=== PATIENT | male | born 1960 | race Caucasian/White ===

== ENCOUNTER 2017-11-12 14:10 | Inpatient (IN) | payer OTHER ==
[2017-11-12] MEDS ORDERED: Polyethylene Glycol 3350 Powder 17 GM Packet PO PRN (14:44)
[2017-11-12] MEDS ORDERED: oxyCODONE 5 MG Tab PO PRN (14:44)
[2017-11-12] MEDS ORDERED: Ondansetron 4 MG Tab.DIS PO PRN (14:44)
--- NOTE | 2017-11-12 14:56 | PCM.HP ---
H&P History of Present Illness - General Date of Service: 11/12/17 Admit Problem/Dx: Admission Diagnosis/Problem Admission Diagnosis/Problem Cellulitis of left lower extremity Source of Information: Patient, Family, Provider History Limitations: Reports: No Limitations - History of Present Illness Initial Comments - Free Text/Narative: [place] presents as a direct admission from the clinic. He reports onset of left lower leg redness, warmth and swelling overnight on Wednesday into Wednesday morning, about 2-2.5 days prior to presentation. 2 days ago he had a fever to 102. He was seen in the clinic yesterday and was febrile. There was concern for cellulitis of the left leg and he was started on cephalexin. Despite being on the antibiotics he has had worsening of the redness, pain and swelling. He now reports severe sharp and burning pain in the left lower leg. Pain is worse with any sort of pressure on the leg. Pain does get better with elevation and rest. He has never had pain like this before. He has been febrile throughout the day today despite taking ibuprofen and acetaminophen. His appetite has been down from baseline. He reports feeling foggy and his report some difficulty with memory over the past couple of days. No complaints of shortness of breath, abdominal pain or nausea. No recent antibiotics. He thinks this all may have started after a bug bite to the left posterior leg. Workup in the clinic revealed leukocytosis of 12,000 yesterday but up to 15,000 today. Preliminary culture result from a swab of the wound on the posterior left leg is growing a group A streptococcus. Sensitivities are still pending. - Related Data Allergies/Adverse Reactions: Allergies Allergy/AdvReac Type Severity Reaction Status Date / Time No Known Allergies Allergy Verified 11/12/17 14:38 Home Medications: Home Meds buPROPion HCl [Wellbutrin Xl] 300 mg PO DAILY 11/12/17 [History] Social & Family History - Family History Other Family History: No family hx of recurrent skin infections - Tobacco Use Smoking Status *Q: Never Smoker - Alcohol Use Alcohol Use History: Yes Alcohol Use in Last Twelve Months: Yes Alcohol Use Frequency: Rarely - Recreational Drug Use Recreational Drug Use: No H&P Review of Systems - Review of Systems: Review Of Systems: See Below Free Text/Narrative: A complete 12 point review of systems was obtained. Pertinent positives and negatives are noted in the history of present illness. All other systems were reviewed and were negative except as noted. Exam - Exam Exam: See Below - Exam Quality Assessment: No: Supplemental Oxygen General: Alert, Oriented, Cooperative. No: Mild Distress HEENT: Conjunctiva Clear, Mucosa Moist & [place]. No: Scleral Icterus Neck: Supple, Trachea Midline. No: Lymphadenopathy Lungs: Clear to Auscultation, Normal Respiratory Effort Cardiovascular: Regular Rate, Regular Rhythm. No: Systolic Murmur GI/Abdominal Exam: Normal Bowel Sounds, Soft, Non-Tender, No Distention Back Exam: Normal Inspection, Full Range of Motion Extremities: No Pedal Edema, Increased Warmth (right lower leg including anterior yoo, medial lower leg to the ankle) Peripheral Pulses: 2+: Dorsalis Pedis (L), Dorsalis Pedis (R) Skin: Warm, Dry Neuro Extensive - Mental Status: Alert, Oriented x3, Nl Response to Commands Neuro Extensive - Motor, Sensory, Reflexes: CN II-XII Intact. No: Dysarthria, Abnormal Motor, Tremor Psychiatric: Alert, Normal Affect - Patient Data Lab Results Last 24 hrs: WBC 11/11 was 12,000 WBC 11/12 is 15,000 Result Diagrams: 11/12/17 15:05 Imaging Impressions Last 24 hrs: CT left lower leg - images personally reviewed - there is no evidence for abscess or deep tissue infection. There is a significant amount of swelling superficially. *Q Meaningful Use (ADM) - VTE Risk Assess *Q Each Risk Factor Represents 1 Point: Age 41 - 59 years Total Score 1 Point Risk Factors: 1 Each Risk Factor Represents 2 Points: None Total Score 2 Point Risk Factors: 0 Each Risk Factor Represents 3 Points: None Total Score 3 Point Risk Factors: 0 Each Risk Factor Represents 5 Points: None Total Score 5 Point Risk Factors: 0 Venous Thromboembolism Risk Factor Score *Q: 1 - Problem List (1) Cellulitis of left lower extremity SNOMED Code(s): 709444494 ICD Code: L03.116 - CELLULITIS OF LEFT LOWER LIMB Status: Acute Current Visit: Yes Problem List Initiated/Reviewed/Updated: Yes Orders Last 24hrs: Active Orders 24 hr Category Date Time Status Patient Status [ADT] Routine ADT 11/12/17 14:44 Ordered Intake and Output [RC] QSHIFT Care 11/12/17 14:45 Ordered Notify Provider Vital Signs [RC] ASDIRECTED Care 11/12/17 14:45 Ordered Oxygen Therapy [RC] PRN Care 11/12/17 14:44 Ordered Peripheral IV Care [RC] . DIRECTED Care 11/12/17 14:47 Ordered Up With Assistance [RC] ASDIRECTED Care 11/12/17 14:44 Ordered VTE/DVT Education [RC] Per Unit Routine Care 11/12/17 14:44 Ordered Vital Signs [RC] Q4H Care 11/12/17 14:44 Ordered Regular Diet [DIET] Diet 11/12/17 Dinner Ordered Lower Extremity wo Cont Lt [CT] Routine Exams 11/12/17 14:39 Ordered BASIC METABOLIC PANEL,BMP [CHEM] AM Lab 11/13/17 05:11 Ordered BASIC METABOLIC PANEL,BMP [CHEM] Urgent Lab 11/12/17 14:40 Ordered CBC W/O DIFF,HEMOGRAM [HEME] AM Lab 11/13/17 05:11 Ordered CRP [C-REACTIVE PROTEIN] [CHEM] Urgent Lab 11/12/17 14:40 Ordered CULTURE BLOOD [BC] Urgent Lab 11/12/17 14:40 Ordered CULTURE BLOOD [BC] Urgent Lab 11/12/17 14:40 Ordered LACTIC ACID [CHEM] Urgent Lab 11/12/17 14:40 Ordered Acetaminophen [Tylenol] Med 11/12/17 14:41 Ordered 650 mg PO Q4H PRN Docusate Sodium/Sennosides [Senna Plus] Med 11/12/17 14:44 Ordered 1 tab PO BID PRN Enoxaparin [Lovenox] Med 11/13/17 09:00 Ordered 40 mg SUBCUT DAILY Ibuprofen [Motrin] Med 11/12/17 14:41 Ordered 600 mg PO Q6H PRN Ondansetron [Zofran ODT] Med 11/12/17 14:44 Ordered 4 mg PO Q6H PRN Polyethylene Glycol 3350 [MiraLAX] Med 11/12/17 14:44 Ordered 17 gm PO DAILY PRN Sodium Chloride 0.9% @ 125 MLS/HR (1000ml) Med 11/12/17 14:45 Ordered Sodium Chloride 0.9% [Normal Saline] 1,000 ml IV ASDIRECTED Sodium Chloride 0.9% [Saline Flush] Med 11/12/17 14:44 Ordered 10 ml FLUSH ASDIRECTED PRN Vancomycin 1.5 gm Med 11/13/17 03:00 Ordered Sodium Chloride 0.9% [Normal Saline] 250 ml IV Q12H Vancomycin 2,000 mg Med 11/12/17 14:42 Ordered Dextrose 5% in Water 250 ml IV ONETIME cefTRIAXone [Rocephin] 2 gm Med 11/12/17 14:45 Ordered Sodium Chloride 0.9% [Normal Saline] 50 ml IV Q24H oxyCODONE Med 11/12/17 14:44 Ordered 5 mg PO Q4H PRN Blood Culture x2 Reflex Set [OM.PC] Urgent Oth 11/12/17 14:40 Ordered Peripheral IV Insertion Adult [OM.PC] Routine Oth 11/12/17 14:44 Ordered Resuscitation Status Routine Resus Stat 11/12/17 14:44 Ordered Medication Orders Acetaminophen (Tylenol) 650 mg PO Q4H PRN PRN Reason: Pain/Fever Enoxaparin Sodium (Lovenox) 40 mg SUBCUT DAILY YARA Ceftriaxone Sodium 2 gm/ (Sodium Chloride) 50 mls @ 100 mls/hr IV Q24H YARA Vancomycin HCl 2,000 mg/ (Sodium Chloride) 500 mls @ 250 mls/hr IV ONETIME ONE Stop: 11/12/17 17:59 Vancomycin HCl 1.5 gm/ Sodium (Chloride) 250 mls @ 167 mls/hr IV Q12H YARA Sodium Chloride (Normal Saline) 1,000 mls @ 125 mls/hr IV ASDIRECTED YARA Ibuprofen (Motrin) 600 mg PO Q6H PRN PRN Reason: Pain/Fever Ondansetron HCl (Zofran Odt) 4 mg PO Q6H PRN PRN Reason: Nausea able to take PO Oxycodone HCl (Oxycodone) 5 mg PO Q4H PRN PRN Reason: Pain (moderate 4-6) Polyethylene Glycol (Miralax) 17 gm PO DAILY PRN PRN Reason: Constipation Senna/Docusate Sodium (Senna Plus) 1 tab PO BID PRN PRN Reason: Constipation Sodium Chloride (Saline Flush) 10 ml FLUSH ASDIRECTED PRN PRN Reason: Keep Vein Open Assessment/Plan Comment:: ASSESSMENT AND PLAN - Cellulitis of the left lower leg with sepsis - progression over the past 24 hours despite oral antibiotic use at home. CT scan of the leg did not show evidence for abscess or deep structure infection. There was evidence for superficial inflammation and swelling consistent with cellulitis. Lactic acid level was elevated consistent with sepsis syndrome. -vancomycin and ceftriaxone -IV fluid bolus -Blood cultures -Pain control -Follow-up culture from the clinic -IV fluids overnight Maintenance issues - - DVT prophylaxis - enoxaparin - GI prophylaxis - not indicated - Nutrition - regular - Hernandez catheter - not indicated CODE STATUS - full code Admission justification - This patient will be admitted for inpatient services and is medically appropriate meeting medical necessity for inpatient admission as outlined in my documentation. I reasonably expect the patient will require inpatient services that span a period time over 2 midnights. I reasonably expect this patient to be discharged or transferred within 96 hours after admission to the [facility]. Disposition - anticipate discharge to home after the hospital stay Primary care physician - [facility] Esequiel Najera M.D.
[2017-11-12] MEDS: Sodium Chloride 0.9% 1,000 ML IV SCH (15:54)
[2017-11-12] MEDS: cefTRIAXone 2 GM in Sodium Chloride 0.9% 50 ML IV SCH (15:54)
[2017-11-12] MEDS ORDERED: Sodium Chloride 0.9% 80 ML IV ONE (15:57)
[2017-11-12] MEDS: Acetaminophen 325 MG Tab PO PRN ×2 (16:00→20:18)
[2017-11-12] MEDS ORDERED: Sodium Chloride 0.9% 500 ML IV SCH (16:00)
[2017-11-12] MEDS ORDERED: Iopamidol 612 MG/ML 100 ML Bottle IV SCH (16:00)
[2017-11-12] MEDS: Sodium Chloride 0.9% 10 ML Syringe FLUSH PRN (16:34)
[2017-11-12] MEDS ORDERED: Potassium Chloride 20 MEQ Tab.ER PO ONE (17:00)
[2017-11-12] MEDS: Ibuprofen 600 MG Tab PO PRN (18:11)
[2017-11-13] MEDS: Ibuprofen 600 MG Tab PO PRN ×4 (00:02→22:16)
--- NOTE | 2017-11-13 01:41 | PCM.SN ---
- Free Text/Narrative Note: time 2100; call from [address] [place] [address] O: lactic acid 1.8 A: with in normal range p; continue present plan of care.
[2017-11-13] MEDS: Sodium Chloride 0.9% 1,000 ML IV SCH ×3 (03:00→23:16)
[2017-11-13] MEDS: Acetaminophen 325 MG Tab PO PRN ×3 (03:03→18:12)
[2017-11-13] MEDS ORDERED: Sodium Chloride 0.9% 500 ML IV SCH ×2 (07:30→08:00)
[2017-11-13] MEDS ORDERED: Potassium Chloride 20 MEQ Tab.ER PO ONE (09:00)
[2017-11-13] MEDS: Enoxaparin 40 MG/0.4 ML Syringe SUBCUT SCH (09:13)
--- NOTE | 2017-11-13 09:22 | PCM.PN ---
- General Info Date of Service: 11/13/17 Functional Status: Reports: Pain Controlled, Tolerating Diet - Review of Systems General: Denies: Fever Musculoskeletal: Reports: Leg Pain Systems Review Comment:: there were no acute events overnight. The patient did have a slight increase in redness on his left medial thigh overnight but this has improved this morning. Pain and swelling are both improved in the left lower leg. He does have a bullae over the left medial malleolus. No joint tenderness in the left ankle. Wound culture from the clinic is growing out strep pyogenes. - Patient Data Vitals - Most Recent: Last Vital Signs Temp 36.9 C 11/13/17 07:08 Pulse 124 H 11/13/17 07:08 Resp 18 11/13/17 07:08 BP 101/72 11/13/17 07:08 Pulse Ox 97 11/13/17 07:08 Weight - Most Recent: 103.419 kg I&O - Last 24 Hours: Intake & Output 11/12/17 11/13/17 11/13/17 22:59 06:59 14:59 Intake Total 3150 1100 1320 Output Total 1200 350 Balance 3150 -100 970 Lab Results Last 24 Hours: Laboratory Results - last 24 hr 11/12/17 11/12/17 11/12/17 Range/Units 15:05 15:05 19:30 WBC (4.5-11.0) K/uL RBC (4.30-5.90) M/uL Hgb (12.0-15.0) g/dL Hct (40.0-54.0) % MCV (80-98) fL MCH (27-31) pg MCHC (32-36) % Plt Count (150-400) K/uL Sodium 137 L (140-148) mmol/L Potassium 3.5 L (3.6-5.2) mmol/L Chloride 101 (100-108) mmol/L Carbon Dioxide 25 (21-32) mmol/L Anion Gap 14.5 H (5.0-14.0) mmol/L BUN 13 (7-18) mg/dL Creatinine 1.1 (0.8-1.3) mg/dL Est Cr Clr Drug Dosing TNP Estimated GFR (MDRD) > 60 (>60) Glucose 97 (74-106) mg/dL Lactic Acid 2.8 H 1.8 (0.4-2.0) mmol/L Calcium 8.8 (8.5-10.1) mg/dL C-Reactive Protein 29.76 H (0.0-0.3) mg/dL 11/13/17 11/13/17 Range/Units 05:32 05:32 WBC 11.9 H (4.5-11.0) K/uL RBC 3.86 L (4.30-5.90) M/uL Hgb 12.4 (12.0-15.0) g/dL Hct 35.6 L (40.0-54.0) % MCV 92 (80-98) fL MCH 32 H (27-31) pg MCHC 35 (32-36) % Plt Count 133 L (150-400) K/uL Sodium 140 (140-148) mmol/L Potassium 3.5 L (3.6-5.2) mmol/L Chloride 108 (100-108) mmol/L Carbon Dioxide 23 (21-32) mmol/L Anion Gap 12.5 (5.0-14.0) mmol/L BUN 11 (7-18) mg/dL Creatinine 1.0 (0.8-1.3) mg/dL Est Cr Clr Drug Dosing 94.76 Estimated GFR (MDRD) > 60 (>60) Glucose 106 (74-106) mg/dL Lactic Acid (0.4-2.0) mmol/L Calcium 7.7 L (8.5-10.1) mg/dL C-Reactive Protein (0.0-0.3) mg/dL Med Orders - Current: Current Medications Acetaminophen (Tylenol) 650 mg PO Q4H PRN PRN Reason: Pain/Fever Last Admin: 11/13/17 03:03 Dose: 650 mg Enoxaparin Sodium (Lovenox) 40 mg SUBCUT DAILY [facility] Last Admin: 11/13/17 09:13 Dose: 40 mg Ceftriaxone Sodium 2 gm/ (Sodium Chloride) 50 mls @ 100 mls/hr IV Q24H YARA Last Admin: 11/12/17 15:54 Dose: 100 mls/hr Vancomycin HCl 1.5 gm/ Sodium (Chloride) 250 mls @ 167 mls/hr IV Q12H [facility] Last Admin: 11/13/17 03:08 Dose: 167 mls/hr Sodium Chloride (Normal Saline) 1,000 mls @ 125 mls/hr IV ASDIRECTED YARA Last Admin: 11/13/17 03:00 Dose: 125 mls/hr Sodium Chloride (Normal Saline) 500 mls @ 500 mls/hr IV ASDIRECTED [facility] Last Admin: 11/13/17 07:45 Dose: 500 mls/hr Ibuprofen (Motrin) 600 mg PO Q6H PRN PRN Reason: Pain/Fever Last Admin: 11/13/17 07:12 Dose: 600 mg Ondansetron HCl (Zofran Odt) 4 mg PO Q6H PRN PRN Reason: Nausea able to take PO Oxycodone HCl (Oxycodone) 5 mg PO Q4H PRN PRN Reason: Pain (moderate 4-6) Polyethylene Glycol (Miralax) 17 gm PO DAILY PRN PRN Reason: Constipation Senna/Docusate Sodium (Senna Plus) 1 tab PO BID PRN PRN Reason: Constipation Sodium Chloride (Saline Flush) 10 ml FLUSH ASDIRECTED PRN PRN Reason: Keep Vein Open Last Admin: 11/12/17 16:34 Dose: 10 ml Discontinued Medications Vancomycin HCl 2,000 mg/ (Sodium Chloride) 500 mls @ 250 mls/hr IV ONETIME ONE Stop: 11/12/17 17:59 Last Admin: 11/12/17 17:32 Dose: 250 mls/hr Sodium Chloride (Normal Saline) 500 mls @ 999 mls/hr IV ASDIRECTED [facility] Stop: 11/12/17 17:01 Sodium Chloride (Normal Saline) 80 mls @ 3.5 mls/sec IV ONETIME ONE Stop: 11/12/17 15:58 Last Admin: 11/12/17 16:34 Dose: 2.5 mls/sec Sodium Chloride (Normal Saline) 500 mls @ 500 mls/hr IV ASDIRECTED [facility] Stop: 11/13/17 08:31 Iopamidol (Isovue-300 (61%)) 100 ml IV . DIRECTED [facility] Stop: 11/12/17 18:00 Last Admin: 11/12/17 16:34 Dose: 100 ml Potassium Chloride (Klor-Con M20) 40 meq PO ONETIME ONE Stop: 11/12/17 17:01 Last Admin: 11/12/17 17:44 Dose: 40 meq Potassium Chloride (Klor-Con M20) 40 meq PO ONETIME ONE Stop: 11/13/17 09:01 Last Admin: 11/13/17 09:13 Dose: 40 meq - Exam Quality Assessment: No: Supplemental Oxygen General: Alert, Oriented, Cooperative, No Acute Distress Neck: Supple Lungs: Normal Respiratory Effort Cardiovascular: Regular Rhythm, Tachycardia GI/Abdominal Exam: No Distention Extremities: No Pedal Edema Skin: Warm, Dry, Rash (erythema left lower leg has improved. Bullae left medial ankle. Marked areas right upper thigh with no erythema inside ) Psy/Mental Status: Alert, Normal Affect - Problem List & Annotations (1) Cellulitis of left lower extremity SNOMED Code(s): 470082957 Code(s): L03.116 - CELLULITIS OF LEFT LOWER LIMB Status: Acute Current Visit: Yes - Problem List Review Problem List Initiated/Reviewed/Updated: Yes - My Orders Last 24 Hours: My Active Orders 11/12/17 14:40 Blood Culture x2 Reflex Set [OM.PC] Urgent 11/12/17 14:41 Acetaminophen [Tylenol] 650 mg PO Q4H PRN Ibuprofen [Motrin] 600 mg PO Q6H PRN 11/12/17 14:44 Patient Status [ADT] Routine Oxygen Therapy [RC] PRN Up With Assistance [RC] ASDIRECTED VTE/DVT Education [RC] Per Unit Routine Vital Signs [RC] Q4H Docusate Sodium/Sennosides [Senna Plus] 1 tab PO BID PRN Ondansetron [Zofran ODT] 4 mg PO Q6H PRN Polyethylene Glycol 3350 [MiraLAX] 17 gm PO DAILY PRN Sodium Chloride 0.9% [Saline Flush] 10 ml FLUSH ASDIRECTED PRN oxyCODONE 5 mg PO Q4H PRN Peripheral IV Insertion Adult [OM.PC] Routine Resuscitation Status Routine 11/12/17 14:45 Intake and Output [RC] QSHIFT Notify Provider Vital Signs [RC] ASDIRECTED Sodium Chloride 0.9% [Normal Saline] 1,000 ml IV ASDIRECTED 11/12/17 14:47 Peripheral IV Care [RC] . DIRECTED 11/12/17 15:00 cefTRIAXone [Rocephin] 2 gm Sodium Chloride 0.9% [Normal Saline] 50 ml IV Q24H 11/12/17 15:05 CULTURE BLOOD [BC] Urgent 11/12/17 15:45 CULTURE BLOOD [BC] Urgent 11/12/17 15:54 Lower Extremity w Cont Lt [CT] Routine 11/12/17 Dinner Regular Diet [DIET] 11/13/17 04:00 Vancomycin 1.5 gm Sodium Chloride 0.9% [Normal Saline] 250 ml IV Q12H 11/13/17 08:00 Sodium Chloride 0.9% [Normal Saline] 500 ml IV ASDIRECTED 11/13/17 09:00 Enoxaparin [Lovenox] 40 mg SUBCUT DAILY 11/14/17 03:30 VANCOMYCIN TROUGH [CHEM] Routine 11/14/17 05:00 CBC W/O DIFF,HEMOGRAM [HEME] Timed (1) POTASSIUM,K [CHEM] Timed - Plan Plan:: ASSESSMENT AND PLAN - Cellulitis of the left lower leg with sepsis - sepsis seems to have resolved with improvement in his lactic acid though he is still borderline tachycardic. Wound culture from the clinic grew out Streptococcus pyogenes. clinically he is doing better today. -vancomycin and ceftriaxone -follow-up blood cultures -Pain control -Follow-up culture sensitivities from the clinic -IV fluids Maintenance issues - - DVT prophylaxis - enoxaparin - GI prophylaxis - not indicated - Nutrition - regular Disposition - anticipate discharge to home after the hospital stay Primary care physician - [facility] Esequiel Najera M.D.
[2017-11-13] MEDS: cefTRIAXone 2 GM in Sodium Chloride 0.9% 50 ML IV SCH (14:54)
[2017-11-14] MEDS: Acetaminophen 325 MG Tab PO PRN ×3 (01:05→18:11)
[2017-11-14] MEDS: Ibuprofen 600 MG Tab PO PRN ×3 (04:14→21:33)
[2017-11-14] MEDS: Enoxaparin 40 MG/0.4 ML Syringe SUBCUT SCH (08:13)
[2017-11-14] MEDS: Sodium Chloride 0.9% 1,000 ML IV SCH (09:20)
--- NOTE | 2017-11-14 10:47 | PCM.PN ---
- General Info Date of Service: 11/14/17 Functional Status: Reports: Pain Controlled, Tolerating Diet - Review of Systems General: Denies: Fever Musculoskeletal: Reports: Leg Pain Systems Review Comment:: There were no acute events overnight. Patient did have one low-grade fever yesterday evening but temperatures have been normal since that time. Ongoing improvement in the redness and swelling as well as warmth of his left lower leg. Still some mild erythema in the groin area with lymphatic spread. His white blood cell count is normal. Pain is improving. - Patient Data Vitals - Most Recent: Last Vital Signs Temp 36.6 C 11/14/17 07:37 Pulse 77 11/14/17 07:37 Resp 16 11/14/17 07:37 BP 120/63 11/14/17 07:37 Pulse Ox 96 11/14/17 07:37 Weight - Most Recent: 103.419 kg I&O - Last 24 Hours: Intake & Output 11/13/17 11/14/17 11/14/17 22:59 06:59 14:59 Intake Total 2477 2515 240 Output Total 675 375 Balance 1802 2140 240 Lab Results Last 24 Hours: Laboratory Results - last 24 hr 11/14/17 11/14/17 11/14/17 Range/Units 03:26 03:26 03:26 WBC 9.5 (4.5-11.0) K/uL RBC 3.48 L (4.30-5.90) M/uL Hgb 11.1 L (12.0-15.0) g/dL Hct 32.4 L (40.0-54.0) % MCV 93 (80-98) fL MCH 32 H (27-31) pg MCHC 34 (32-36) % Plt Count 141 L (150-400) K/uL Potassium 3.7 (3.6-5.2) mmol/L Vancomycin Trough 8.3 L (10.0-20.0) ug/mL Marito Results Last 24 Hours: Microbiology 11/12/17 15:45 Aerobic Blood Culture - Preliminary Blood - Venous NO GROWTH AFTER 1 DAY Anaerobic Blood Culture - Preliminary NO GROWTH AFTER 1 DAY 11/12/17 15:05 Aerobic Blood Culture - Preliminary Blood - Venous - Lab Draw NO GROWTH AFTER 1 DAY Anaerobic Blood Culture - Preliminary NO GROWTH AFTER 1 DAY Med Orders - Current: Current Medications Acetaminophen (Tylenol) 650 mg PO Q4H PRN PRN Reason: Pain/Fever Last Admin: 11/14/17 01:05 Dose: 650 mg Enoxaparin Sodium (Lovenox) 40 mg SUBCUT DAILY [facility] Last Admin: 11/14/17 08:13 Dose: 40 mg Ceftriaxone Sodium 2 gm/ (Sodium Chloride) 50 mls @ 100 mls/hr IV Q24H [facility] Last Admin: 11/13/17 14:54 Dose: 100 mls/hr Vancomycin HCl 1.5 gm/ Sodium (Chloride) 250 mls @ 250 mls/hr IV Q8H [facility] Ibuprofen (Motrin) 600 mg PO Q6H PRN PRN Reason: Pain/Fever Last Admin: 11/14/17 04:14 Dose: 600 mg Ondansetron HCl (Zofran Odt) 4 mg PO Q6H PRN PRN Reason: Nausea able to take PO Oxycodone HCl (Oxycodone) 5 mg PO Q4H PRN PRN Reason: Pain (moderate 4-6) Polyethylene Glycol (Miralax) 17 gm PO DAILY PRN PRN Reason: Constipation Senna/Docusate Sodium (Senna Plus) 1 tab PO BID PRN PRN Reason: Constipation Sodium Chloride (Saline Flush) 10 ml FLUSH ASDIRECTED PRN PRN Reason: Keep Vein Open Last Admin: 11/12/17 16:34 Dose: 10 ml Discontinued Medications Vancomycin HCl 2,000 mg/ (Sodium Chloride) 500 mls @ 250 mls/hr IV ONETIME ONE Stop: 11/12/17 17:59 Last Admin: 11/12/17 17:32 Dose: 250 mls/hr Vancomycin HCl 1.5 gm/ Sodium (Chloride) 250 mls @ 167 mls/hr IV Q12H [facility] Last Admin: 11/14/17 04:18 Dose: 167 mls/hr Sodium Chloride (Normal Saline) 1,000 mls @ 125 mls/hr IV ASDIRECTED [facility] Last Admin: 11/14/17 09:20 Dose: 125 mls/hr Sodium Chloride (Normal Saline) 500 mls @ 999 mls/hr IV ASDIRECTED [facility] Stop: 11/12/17 17:01 Sodium Chloride (Normal Saline) 80 mls @ 3.5 mls/sec IV ONETIME ONE Stop: 11/12/17 15:58 Last Admin: 11/12/17 16:34 Dose: 2.5 mls/sec Sodium Chloride (Normal Saline) 500 mls @ 500 mls/hr IV ASDIRECTED [facility] Stop: 11/13/17 08:31 Sodium Chloride (Normal Saline) 500 mls @ 500 mls/hr IV ASDIRECTED [facility] Last Admin: 11/13/17 07:45 Dose: 500 mls/hr Iopamidol (Isovue-300 (61%)) 100 ml IV . DIRECTED [facility] Stop: 11/12/17 18:00 Last Admin: 11/12/17 16:34 Dose: 100 ml Potassium Chloride (Klor-Con M20) 40 meq PO ONETIME ONE Stop: 11/12/17 17:01 Last Admin: 11/12/17 17:44 Dose: 40 meq Potassium Chloride (Klor-Con M20) 40 meq PO ONETIME ONE Stop: 11/13/17 09:01 Last Admin: 11/13/17 09:13 Dose: 40 meq - Exam Quality Assessment: No: Supplemental Oxygen General: Alert, Oriented, Cooperative, No Acute Distress Neck: Supple Lungs: Normal Respiratory Effort GI/Abdominal Exam: No Distention Extremities: Pedal Edema (mild left foot), Increased Warmth (left anterior lower leg) Skin: Warm, Dry, Rash (erythema left anterior yoo. Bullae left medial ankle) Psy/Mental Status: Alert, Normal Affect - Problem List & Annotations (1) Cellulitis of left lower extremity SNOMED Code(s): 913049299 Code(s): L03.116 - CELLULITIS OF LEFT LOWER LIMB Status: Acute Current Visit: Yes - Problem List Review Problem List Initiated/Reviewed/Updated: Yes - My Orders Last 24 Hours: My Active Orders 11/14/17 10:45 Convert IV to Saline Lock [OM.PC] Routine 11/14/17 12:00 Vancomycin 1.5 gm Sodium Chloride 0.9% [Normal Saline] 250 ml IV Q8H 11/15/17 05:00 BASIC METABOLIC PANEL,BMP [CHEM] Timed CBC W/O DIFF,HEMOGRAM [HEME] Timed (1) - Plan Plan:: ASSESSMENT AND PLAN - Cellulitis of the left lower leg with sepsis - sepsis has resolved. Leg looks better and feels better today. Bullae on the medial ankle has not ruptured. Blood cultures negative so far. Wound Culture from the clinic throughout strep patch knees. -vancomycin and ceftriaxone (plan for outpatient therapy with cefdinir) -follow-up blood cultures -Pain control -Saline lock IV Maintenance issues - - DVT prophylaxis - enoxaparin - GI prophylaxis - not indicated - Nutrition - regular Disposition - anticipate discharge to home after the hospital stay Primary care physician - [facility] Esequiel Najera M.D.
[2017-11-14] MEDS: cefTRIAXone 2 GM in Sodium Chloride 0.9% 50 ML IV SCH (14:43)
[2017-11-14] MEDS: Sodium Chloride 0.9% 10 ML Syringe FLUSH PRN (20:14)
[2017-11-15] MEDS: Acetaminophen 325 MG Tab PO PRN ×2 (00:32→14:53)
[2017-11-15] MEDS: Ibuprofen 600 MG Tab PO PRN ×2 (03:44→15:52)
[2017-11-15] MEDS: Sodium Chloride 0.9% 10 ML Syringe FLUSH PRN (03:47)
[2017-11-15] MEDS: Enoxaparin 40 MG/0.4 ML Syringe SUBCUT SCH (08:03)
[2017-11-15] MEDS ORDERED: Lactobacillus Rhamnosus GG (Probiotic) Cap PO SCH (12:15)
[2017-11-15] MEDS ORDERED: Piperacillin/Tazobactam/Dext 3.375 GM in Premix Bag 1 BAG IV SCH (12:30)
--- NOTE | 2017-11-15 15:28 | US ---
VL Duplex Lwr Ext Veins Ltd Lt INDICATION: persistent swelling, cellulitis FINDINGS: Ultrasound examination of the lower extremity using Doppler and compressive technique demon strates that the common femoral, femoral, and popliteal veins are patent, and negative for thrombus. The calf veins were segmentally visualized and are negative where seen. IMPRESSION: Negative for deep venous thrombosis.
--- NOTE | 2017-11-15 15:46 | PCM.DCSUM1 ---
Discharge Summary - Hospital Course Brief History: Mr. Rosario is a 57-year-old gentleman who was admitted as a direct admission from the clinic with cellulitis of his left lower leg and associated sepsis. - Discharge Data Discharge Date: 11/15/17 Discharge Disposition: DC/Tfer to Acute Hospital 02 Condition: Fair - Discharge Diagnosis/Problem(s) (1) Sepsis SNOMED Code(s): 94085149 ICD Code: A41.9 - SEPSIS, UNSPECIFIED ORGANISM Status: Acute Current Visit: Yes (2) Cellulitis of left lower extremity SNOMED Code(s): 716662744 ICD Code: L03.116 - CELLULITIS OF LEFT LOWER LIMB Status: Acute Current Visit: Yes - Patient Summary/Data Hospital Course: Mr. Rosario presents as a direct admission from the clinic. He reports onset of left lower leg redness, warmth and swelling overnight on Wednesday into Wednesday morning, about 2-2.5 days prior to presentation. 2 days ago he had a fever to 102. He was seen in the clinic yesterday and was febrile. There was concern for cellulitis of the left leg and he was started on cephalexin. Despite being on the antibiotics he has had worsening of the redness, pain and swelling. He now reports severe sharp and burning pain in the left lower leg. Pain is worse with any sort of pressure on the leg. Pain does get better with elevation and rest. He has never had pain like this before. He has been febrile throughout the day today despite taking ibuprofen and acetaminophen. His appetite has been down from baseline. He reports feeling foggy and his report some difficulty with memory over the past couple of days. No complaints of shortness of breath, abdominal pain or nausea. No recent antibiotics. He thinks this all may have started after a bug bite to the left posterior leg. Workup in the clinic revealed leukocytosis of 12,000 yesterday but up to 15,000 today. Preliminary culture result from a swab of the wound on the posterior left leg is growing a group A streptococcus. Blood cultures were obtained at the time of admission and remained negative throughout his hospital stay. He was given IV fluids for hydration as well as management of early sepsis. IV antibiotics were initiated on admission including vancomycin and ceftriaxone. There was improvement over the next few days of hospitalization with a decrease in temperature curve although he continued to have lower but daily temperatures up until the time of transfer. White blood cell count normalized and remained normal up until the time of transfer. CT scan of the lower leg was obtained and showed no evidence of abscess or osteomyelitis. Venous Doppler study was obtained prior to transfer and was negative for deep vein thrombosis involving the left leg. On initial evaluation there had been some involvement of the cellulitis in the upper anterior thigh, this improved but he continued to have significant erythema and warmth as well as swelling involving the left calf. In the 24 hour period prior to transfer there did appear to be some advancement of the cellulitis into the posterior thigh. Because of appearance of worsening of the cellulitis despite antibiotic therapy it's felt that it is medically necessary to transfer the patient to tertiary care center for further subspecialty evaluation and management including infectious disease. On the day of transfer the ceftriaxone had been discontinued and he was started on Zosyn every 6 hours, vancomycin was continued until the time of transfer. He will be transferred to [facility] in [facility], via [facility]. He has been accepted in transfer by the hospitalist at [facility], Dr. Medina. - Patient Instructions Diet: Usual Diet as Tolerated Activity: As Tolerated Other/Special Instructions: Patient will be transferred to [facility] in [facility] for further subspecialty evaluation and management. - Discharge Plan *PRESCRIPTION DRUG MONITORING PROGRAM REVIEWED*: Not Applicable *COPY OF PRESCRIPTION DRUG MONITORING REPORT IN PATIENT MAUREEN: Not Applicable Home Medications: Home Meds buPROPion HCl [Wellbutrin Xl] 300 mg PO DAILY 11/12/17 [History] Enoxaparin [Lovenox] 40 mg SUBCUT DAILY syringe 11/15/17 [Rx] Lactobacillus Rhamnosus GG [Culturelle] 1 cap PO BID cap 11/15/17 [Rx] Piperacillin/Tazobactam/Dext [Zosyn in Dextrose Iso-Osmotic 3.375 GM] 3.375 gm IV Q6H bag 11/15/17 [Rx] Vancomycin 1.5 gm IV Q8H sdv 11/15/17 [Rx] - Discharge Summary/Plan Comment DC Time >30 min.: No - Patient Data Vitals - Most Recent: Last Vital Signs Temp 214.0 F H 11/15/17 14:53 Pulse 85 11/15/17 14:43 Resp 16 11/15/17 14:43 BP 127/61 11/15/17 14:43 Pulse Ox 98 11/15/17 14:43 Weight - Most Recent: 227 lb 15.998 oz I&O - Last 24 hours: Intake & Output 11/15/17 11/15/17 11/15/17 06:59 14:59 22:59 Intake Total 250 Output Total 850 Balance -600 Lab Results - Last 24 hrs: Laboratory Results - last 24 hr 11/15/17 11/15/17 Range/Units 05:45 05:45 WBC 10.8 (4.5-11.0) K/uL RBC 3.61 L (4.30-5.90) M/uL Hgb 11.5 L (12.0-15.0) g/dL Hct 33.1 L (40.0-54.0) % MCV 92 (80-98) fL MCH 32 H (27-31) pg MCHC 35 (32-36) % Plt Count 180 (150-400) K/uL Sodium 140 (140-148) mmol/L Potassium 3.7 (3.6-5.2) mmol/L Chloride 105 (100-108) mmol/L Carbon Dioxide 24 (21-32) mmol/L Anion Gap 10.8 (5.0-14.0) mmol/L BUN 10 (7-18) mg/dL Creatinine 1.0 (0.8-1.3) mg/dL Est Cr Clr Drug Dosing 94.76 mL/min Estimated GFR (MDRD) > 60 (>60) Glucose 98 (74-106) mg/dL Calcium 8.1 L (8.5-10.1) mg/dL ALEXANDER Results - Last 24 hrs: Microbiology 11/12/17 15:05 Aerobic Blood Culture - Preliminary Blood - Venous - Lab Draw NO GROWTH AFTER 3 DAYS Anaerobic Blood Culture - Preliminary NO GROWTH AFTER 3 DAYS 11/12/17 15:45 Aerobic Blood Culture - Preliminary Blood - Venous NO GROWTH AFTER 2 DAYS Anaerobic Blood Culture - Preliminary NO GROWTH AFTER 2 DAYS Med Orders - Current: Current Medications Acetaminophen (Tylenol) 650 mg PO Q4H PRN PRN Reason: Pain/Fever Last Admin: 11/15/17 14:53 Dose: 650 mg Enoxaparin Sodium (Lovenox) 40 mg SUBCUT DAILY YARA Last Admin: 11/15/17 08:03 Dose: 40 mg Vancomycin HCl 1.5 gm/ Sodium (Chloride) 250 mls @ 250 mls/hr IV Q8H [facility] Last Admin: 11/15/17 12:07 Dose: 250 mls/hr Piperacillin/Tazobactam/ (Dextrose 3.375 gm/ Premix) 50 mls @ 100 mls/hr IV Q6H [facility] Last Admin: 11/15/17 13:38 Dose: 100 mls/hr Ibuprofen (Motrin) 600 mg PO Q6H PRN PRN Reason: Pain/Fever Last Admin: 11/15/17 03:44 Dose: 600 mg Lactobacillus Rhamnosus (Culturelle) 1 cap PO BID [facility] Last Admin: 11/15/17 13:01 Dose: 1 cap Ondansetron HCl (Zofran Odt) 4 mg PO Q6H PRN PRN Reason: Nausea able to take PO Oxycodone HCl (Oxycodone) 5 mg PO Q4H PRN PRN Reason: Pain (moderate 4-6) Polyethylene Glycol (Miralax) 17 gm PO DAILY PRN PRN Reason: Constipation Senna/Docusate Sodium (Senna Plus) 1 tab PO BID PRN PRN Reason: Constipation Sodium Chloride (Saline Flush) 10 ml FLUSH ASDIRECTED PRN PRN Reason: Keep Vein Open Last Admin: 11/15/17 03:47 Dose: 10 ml Discontinued Medications Ceftriaxone Sodium 2 gm/ (Sodium Chloride) 50 mls @ 100 mls/hr IV Q24H [facility] Last Admin: 11/14/17 14:43 Dose: 100 mls/hr Vancomycin HCl 2,000 mg/ (Sodium Chloride) 500 mls @ 250 mls/hr IV ONETIME ONE Stop: 11/12/17 17:59 Last Admin: 11/12/17 17:32 Dose: 250 mls/hr Vancomycin HCl 1.5 gm/ Sodium (Chloride) 250 mls @ 167 mls/hr IV Q12H [facility] Last Admin: 11/14/17 04:18 Dose: 167 mls/hr Sodium Chloride (Normal Saline) 1,000 mls @ 125 mls/hr IV ASDIRECTED [facility] Last Admin: 11/14/17 09:20 Dose: 125 mls/hr Sodium Chloride (Normal Saline) 500 mls @ 999 mls/hr IV ASDIRECTED [facility] Stop: 11/12/17 17:01 Sodium Chloride (Normal Saline) 80 mls @ 3.5 mls/sec IV ONETIME ONE Stop: 11/12/17 15:58 Last Admin: 11/12/17 16:34 Dose: 2.5 mls/sec Sodium Chloride (Normal Saline) 500 mls @ 500 mls/hr IV ASDIRECTED YARA Stop: 11/13/17 08:31 Sodium Chloride (Normal Saline) 500 mls @ 500 mls/hr IV ASDIRECTED [facility] Last Admin: 11/13/17 07:45 Dose: 500 mls/hr Iopamidol (Isovue-300 (61%)) 100 ml IV . DIRECTED [facility] Stop: 11/12/17 18:00 Last Admin: 11/12/17 16:34 Dose: 100 ml Potassium Chloride (Klor-Con M20) 40 meq PO ONETIME ONE Stop: 11/12/17 17:01 Last Admin: 11/12/17 17:44 Dose: 40 meq Potassium Chloride (Klor-Con M20) 40 meq PO ONETIME ONE Stop: 11/13/17 09:01 Last Admin: 11/13/17 09:13 Dose: 40 meq - Exam Quality Assessment: Reports: DVT Prophylaxis General: Reports: Alert, Oriented, Cooperative, Moderate Distress Lungs: Reports: Clear to Auscultation, Normal Respiratory Effort Cardiovascular: Reports: Regular Rate, Regular Rhythm, No Murmurs GI/Abdominal Exam: Soft, Non-Tender, No Organomegaly, No Distention Extremities: Pedal Edema, Leg Pain, Increased Warmth, Redness
== END 2017-11-15 16:30 | DRG 872 ==
LOC: JP.MS 14:10
PROVIDERS: ADMIT Internal Medicine; ATTEND Internal Medicine
DX: A41.9 Sepsis, unspecified organism (principal); L03.116 Cellulitis of left lower limb; B95.0 Streptococcus, group A, as the cause of diseases classified elsewhere
CPT/HCPCS: 36415; 73701-LT; 80048; 80202; 83605; 84132; 85027; 86140; 87040; 93971-26-LT; 93971-LT; A9270-GY; J0696; J1650; J2543; J3370; J7030; J7040; J7050; Q9967